=== PATIENT | female | born 1930 | race Caucasian/White ===

== ENCOUNTER 2018-05-10 14:14 | Inpatient (IN) ==
[2018-05-10 14:45] LABS: Basophils % 0.9 % (0.1-2.0); Eosinophils # 0.1 K/mm3 (0.0-0.4); Eosinophils % 3.4 % (0.1-12.0); Lymphocytes # 1.5 K/mm3 (0.7-4.5); Lymphocytes % 36.6 % (10-50); Mean Corpuscular Hemoglobin 18.8 pg (27.0-31.2); Mean Corpuscular Volume 69.7 fl (81-99); Mean Platelet Volume 8.4 fl (7.4-10.4); Monocytes # 0.3 K/mm3 (0.1-1.0); Monocytes % 7.4 % (1.7-9.3); Neutrophils # 2.2 K/mm3 (1.8-7.8); Neutrophils % 51.7 % (37.0-80.0); Platelet Count 471 K/mm3 (142-424); Red Blood Count 2.38 M/mm3 (4.20-5.40); Red Cell Distribution Width 15.6 % (11.5-17.5); White Blood Count 4.2 K/mm3 (4.8-10.8)
--- NOTE | 2018-05-10 14:46 | Emergency Department Note ---
ED Disposition Clinical Impression: Blood loss anemia, Occult blood positive stool Disposition: Admitted As Inpatient Condition on Discharge: Fair Referrals: Provider,Referral, [Primary Care Provider] - - Critical Care Critical Care Time: Yes Attestation: On 05/10/18, the high probability of a clinically significant, sudden or life threatening deterioration of the following system(s) required my full and direct attention, intervention and personal management. The time I documented below is in addition to time spent performing reported procedures but includes the following listed in this critical care notation. Vital system(s) involved:: Circulatory Failure My critical care processes included: Assessment & monitoring of V/S, Initial and Re-exams, Data Review/Interpretation, Coordinating Care, Medication Orders and management, Documentation Medical Decision Making - [place] Inquiry Pt receiving controlled substance: No Vital Signs: 05/10/18 14:15 05/10/18 14:50 05/10/18 15:15 Temperature 98.0 F Temperature Source Oral Pulse Rate [Right Radial] 72 72 Respiratory Rate 20 20 Blood Pressure [Right Arm] 154/65 H 153/80 H 140/54 L Blood Pressure Mean [Right Arm] 94 104 82 Blood Pressure Source [Right Arm] Automatic Cuff Automatic Cuff Automatic Cuff Blood Pressure Position [Right Arm] Sitting Sitting Sitting 02 Sat by Pulse Oximetry 99 92 L Oxygen Delivery Method Nasal Cannula Nasal Cannula Oxygen Flow Rate (LPM) 2 2 - Lab Data Lab Results 05/10/18 14:36: WBC 4.2 L, RBC 2.38 L, Hgb 4.5 L*, Hct 16.6 L*, MCV 69.7 L, MCH 18.8 L, MCHC 27.0 L, RDW 15.6, Plt Count 471 H, MPV 8.4, Neut % (Auto) 51.7, Lymph % (Auto) 36.6, [place] % (Auto) 7.4, Eos % (Auto) 3.4, Baso % (Auto) 0.9, Neut # (Auto) 2.2, Lymph # (Auto) 1.5, [place] # (Auto) 0.3, Eos # (Auto) 0.1, Baso # (Auto) 0.0 05/10/18 14:36: Sodium 135 L, Potassium 4.1, Chloride 101, Carbon Dioxide 22, Anion Gap 16.1 H, BUN 43 H, Creatinine 1.75 H, Estimated Creat Clear 17, Estimated GFR 27 L, Est GFR ( Amer) 33 L, Glucose 181 H, Calcium 8.0 L, Total Bilirubin 0.3, AST 11 L, ALT 14, Alkaline Phosphatase 113, Total Protein 7.3, Albumin 2.9 L, Globulin 4.4 H, Albumin/Globulin Ratio 0.7 L 05/10/18 14:36: Troponin I < 0.02 05/10/18 14:55: Stool Occult Blood Positive A Result diagrams: 05/10/18 14:36 05/10/18 14:36 Orders (Tests/Meds): ED MEDICATIONS Generic Name Dose Route Start Last Admin Trade Name Freq PRN Reason Stop Dose Admin Sodium Chloride 250 mls @ 25 mls/hr 05/10/18 15:15 Sod Chlor 0.9% 250ml Bag IV 05/11/18 15:14 .Q10H LIZETH Sodium Chloride 10 ml 05/10/18 14:24 Saline Flush 10ml Syringe IV 06/09/18 14:23 NEEDED PRN Maintain IV Site ORDERS Category Date Time Status PRBC [Red Blood Cells] Stat BBK 05/10/18 15:03 Ordered Type and Screen Stat BBK 05/10/18 15:03 Ordered Occult Blood,Stool Stat Lab 05/10/18 14:55 Ordered - ECG Data Tracing #1 EKG interpreted by Gilmar Loving MD: Rhythm: Atrial fibrillation Rate: 84 [place]: Left Ectopy: none Conduction: normal ST Segment Changes: none T Wave Changes: none Q Waves: none No evidence of acute ischemia or injury Baseline artifact and wander present, but I consider the EKG adequate for accurate interpretation. General Adult HPI - General Chief complaint: Weakness Stated complaint: critical labs Time Seen by Provider: 05/10/18 14:46 Mode of Arrival: EMS Limitations: No Limitations Description of Symptoms (Recalled from ER Triage Doc. by RN): Pt sent over to ER for evaluation r/t critical H&H that was drawn at the group home. Per PCP pt is chronically anemic but not as low as lab results from today. - History of Present Illness HPI narrative: Sent from [facility] for low H&H. Blood work reportedly done today and hemoglobin was 4. History of chronic anemia, but is now worse. Patient says she does not feel very well, but has no specific complaint. Denies pain. Denies abdominal pain or chest pain. Denies shortness of breath. Denies vomi ting or hematemesis. Denies melena or hematochezia. - Related Data Home Medications Medication Instructions Recorded Confirmed acetaminophen 500 mg capsule 500 mg PO Q4H PRN 06/29/17 04/02/18 bisacodyl 10 mg rectal suppository 10 mg DC DAILY PRN each 06/29/17 04/02/18 lactulose 10 gram/15 mL oral 20 g PO DAILY PRN ml 06/29/17 04/02/18 solution rivaroxaban 15 mg tablet 15 mg PO DAILY tab 06/29/17 04/02/18 diltiazem CD 240 mg 240 mg PO BID cap 07/03/17 04/02/18 capsule,extended release 24 hr triamterene 75 1 tab PO QAM 07/31/17 04/02/18 mg-hydrochlorothiazide 50 mg tablet Doxazosin Mesylate [Cardura 4mg 4 mg PO QHS 12/12/17 04/02/18 Tab] Sennosides/Docusate Sodium 1 each PO BID 12/12/17 04/02/18 [Senna-S Laxative Tablet] polyethylene glycol 3350 17 8 g PO DAILY g 04/02/18 04/02/18 gram/dose oral powder Allergies Allergy/AdvReac Type Severity Reaction Status Date / Time No Known Allergies Allergy Verified 04/02/18 10:52 [facility] History - Hepatitis A Screen Drug use history?: No High risk sexual behaviors?: No History of sexually transmitted infection?: No Currently employed?: No Childcare worker?: No Do you have indoor plumbing?: Yes Do you have electricity?: Yes Attestation statement:: This patient has been screened for Hepatitis A risk factors. I have reviewed the patient's past medical history: Yes Medical History: Reports:: Atrial Fibrillation Other Surgeries: Yes: Other - Social History Smoking Status: Never smoker Alcohol Intake: never Alcohol Intake Frequency:: other Substance Use Type: denies use Family Hx:: Unable to obtain ROS Obtained: Yes All systems reviewed & no additional complaints - Constitutional Constitutional: Denies fever(s) - Cardiovascular Cardiovascular: Denies chest pain - Respiratory Respiratory: No dyspnea - Gastrointestinal Gastrointestingal: Denies: abdominal pain, change in stool character, diarrhea, nausea, vomiting Physical Exam - General General appearance: alert, in no apparent distress - Head Head exam: atraumatic, normocephalic - ENT ENT exam: Present: mucous membranes moist - Neck Neck exam: Present: normal inspection, trachea midline - Chest Chest inspection: Present: normal inspection, symmetric chest wall rise - Respiratory Respiratory exam: Present: normal lung sounds bilaterally. Absent: respiratory distress - Cardiovascular Cardiovascular exam: Present: regular rate, normal rhythm, normal heart sounds - Abdominal Exam Abdominal exam: Present: soft. Absent: distention, tenderness - Rectal Exam Rectal exam: Present: normal inspection, normal rectal tone. Absent: black stool, bloody stool, mass - Extremities Exam Extremities exam: Present: normal inspection - Neurological Exam Neurological exam: Present: alert - Psychiatric Psychiatric exam: Present: anxious - Skin Skin exam: Present: warm, dry
[2018-05-10 14:54] LABS: Hemoglobin 4.5 g/dL (12.2-16.2)
[2018-05-10 14:55] LABS: Hematocrit 16.6 % (37.0-47.0)
[2018-05-10 14:57] LABS: Albumin Level 2.9 gm/dL (3.4-5.0); Albumin/Globulin Ratio 0.7 (1.1-1.8); Anion Gap 16.1 mEq/L (5-15); Bilirubin,Total 0.3 mg/dL (0.2-1.0); Globulin 4.4 gm/dl (1.3-3.2); Potassium 4.1 mmoL/L (3.5-5.1); Total Protein,Serum 7.3 gm/dL (6.4-8.2)
[2018-05-11 00:28] LABS: Hematocrit 25.5 % (37.0-47.0); Hemoglobin 8.2 g/dL (12.2-16.2)
[2018-05-11 06:19] LABS: Basophils % 0.5 % (0.1-2.0); Eosinophils # 0.2 K/mm3 (0.0-0.4); Eosinophils % 3.5 % (0.1-12.0); Lymphocytes # 1.8 K/mm3 (0.7-4.5); Lymphocytes % 28.7 % (10-50); Mean Corpuscular HGB Conc 32.5 g/dL (31.8-35.4); Mean Corpuscular Hemoglobin 24.9 pg (27.0-31.2); Mean Corpuscular Volume 76.6 fl (81-99); Mean Platelet Volume 7.2 fl (7.4-10.4); Monocytes # 0.4 K/mm3 (0.1-1.0); Monocytes % 7.2 % (1.7-9.3); Neutrophils # 3.7 K/mm3 (1.8-7.8); Neutrophils % 60.2 % (37.0-80.0); Platelet Count 402 K/mm3 (142-424); Red Blood Count 3.06 M/mm3 (4.20-5.40); Red Cell Distribution Width 20.5 % (11.5-17.5); White Blood Count 6.2 K/mm3 (4.8-10.8)
[2018-05-11 07:25] LABS: Hematocrit 23.4 % (37.0-47.0); Hemoglobin 7.6 g/dL (12.2-16.2)
--- NOTE | 2018-05-11 08:46 | History & Physical Report ---
*Admission Date: 05/10/18 *Chief complaint: anemia *History of present illness: this wf from [facility] was found to have acute blood loss anemia - she was seen in the ed nt from [facility] for low H&H. Blood work reportedly done today and hemoglobin was 4. History of chronic anemia, but is now worse. Patient says she does not feel very well, but has no specific complaint. Denies pain. Denies abdominal pain or chest pain. Denies shortness of breath. Denies vomiting or hematemesis. Denies melena or hematochezia. pt with pos hemocult and low h/h and was admitted for eval and trnsfusion- pt is poor historian [facility] History I have reviewed the patient's past medical history: Yes Medical History: Reports:: Atrial Fibrillation Denies:: Diabetes Mellitus Type 1, Diabetes Mellitus Type 2 Have you ever received a pneumonia vaccine?: Yes Have you received a flu vaccine this season?: Yes Other Surgeries: Yes: Cholecystectomy, Hysterectomy-Total, Other - *Social History Smoking Status: Never smoker Alcohol Intake: never Alcohol Intake Frequency:: other Substance Use Type: denies use Occupational Status: other Housing: retirement Household Members: caregiver Travel in the last 8 weeks: None - Psychiatric History Expresses thoughts of harming self/others: None Suicide Plan Description: No Plan *Family Hx:: Unable to obtain Review of Systems - Review of Systems Review of systems:: pertinent systems reviewed and negative unless documented below - Constitutional Denies fever(s) - Eyes Denies change in vision - ENT Denies sore throat - *Cardiovascular Denies chest pain at rest - *Respiratory Denies cough - *Gastrointestinal Denies abdominal pain, Denies bright, red blood in stools, Denies black, tarry stools - *Genitourinary Denies blood in urine - *Musculoskeletal Denies joint pain - Integumentary/Breasts Denies rash - *Neurologic Denies headache(s), Denies seizure-like activity - Psychiatric Reports anxiety Meds Home Medications Medication Instructions Recorded Confirmed Type acetaminophen 500 mg capsule 500 mg PO Q4HP PRN 06/29/17 05/11/18 History bisacodyl 10 mg rectal suppository 10 mg RC DAILYP PRN each 06/29/17 05/11/18 History lactulose 10 gram/15 mL oral 20 gm PO DAILY PRN ml 06/29/17 05/11/18 History solution rivaroxaban 15 mg tablet 15 mg PO DAILY tab 06/29/17 05/10/18 History diltiazem CD 240 mg 240 mg PO BID cap 07/03/17 05/10/18 History capsule,extended release 24 hr triamterene 75 1 tab PO DAILY 07/31/17 05/11/18 History mg-hydrochlorothiazide 50 mg tablet Doxazosin Mesylate [Cardura 4mg 4 mg PO HS 12/12/17 05/11/18 History Tab] Sennosides/Docusate Sodium 1 each PO BID 12/12/17 05/10/18 History [Senna-S Laxative Tablet] polyethylene glycol 3350 17 17 gm PO DAILY g 04/02/18 05/11/18 History gram/dose oral powder Allergies Allergy/AdvReac Type Severity Reaction Status Date / Time No Known Allergies Allergy Verified 04/02/18 10:52 Exam Vital signs and Labs for Last 24 Hours: Temp Pulse Resp BP Pulse Ox 98.3 F 69 18 142/63 H 98 05/11/18 08:00 05/11/18 08:00 05/11/18 08:00 05/11/18 08:00 05/11/18 08:00 Laboratory Results - last 24 hr 05/10/18 14:36: WBC 4.2 L, RBC 2.38 L, Hgb 4.5 L*, Hct 16.6 L*, MCV 69.7 L, MCH 18.8 L, MCHC 27.0 L, RDW 15.6, Plt Count 471 H, MPV 8.4, Neut % (Auto) 51.7, Lymph % (Auto) 36.6, [place] % (Auto) 7.4, Eos % (Auto) 3.4, Baso % (Auto) 0.9, Neut # (Auto) 2.2, Lymph # (Auto) 1.5, [place] # (Auto) 0.3, Eos # (Auto) 0.1, Baso # (Auto) 0.0 05/10/18 14:36: Sodium 135 L, Potassium 4.1, Chloride 101, Carbon Dioxide 22, Anion Gap 16.1 H, BUN 43 H, Creatinine 1.75 H, Estimated Creat Clear 17, Estimated GFR 27 L, Est GFR ( Amer) 33 L, Glucose 181 H, Calcium 8.0 L, Total Bilirubin 0.3, AST 11 L, ALT 14, Alkaline Phosphatase 113, Total Protein 7.3, Albumin 2.9 L, Globulin 4.4 H, Albumin/Globulin Ratio 0.7 L 05/10/18 14:36: Troponin I < 0.02 05/10/18 14:55: Stool Occult Blood Positive A 05/10/18 15:40: Blood Type O Positive, Antibody Screen Negative, Crossmatch (AHG) See Detail 05/11/18 00:20: Hgb 8.2 L D, Hct 25.5 L 05/11/18 06:00: WBC 6.2 D, RBC 3.06 L D, Hgb 7.6 L*, Hct 23.4 L*, MCV 76.6 L, MCH 24.9 L D, MCHC 32.5, RDW 20.5 H D, Plt Count 402, MPV 7.2 L, Neut % (Auto) 60.2, Lymph % (Auto) 28.7, [place] % (Auto) 7.2, Eos % (Auto) 3.5, Baso % (Auto) 0.5, Neut # (Auto) 3.7, Lymph # (Auto) 1.8, [place] # (Auto) 0.4, Eos # (Auto) 0.2, Baso # (Auto) 0.0 I & O for Last 24 hours: Intake & Output 05/08/18 05/09/18 05/10/18 05/11/18 11:59 11:59 11:59 11:59 Intake Total 0 / 0 Balance 0 / 0 Weight 104 lb 7 oz - Constitutional no acute distress, thin - *Routine HEENT Exam Head: Present: normocephalic Eye: Present: EOMI, PERRL ENT: Present: mucous membranes dry - *Routine Neck Exam Present: supple - *Routine Respiratory Exam Absent: decreased breath sounds - *Routine Cardiovascular Exam Present: RRR, murmur - *Routine Abdominal Exam Present: soft - *Routine Extremities Exam Absent: calf tenderness - *Routine Skin Exam Present: intact - *Routine Neurological Exam Present: alert, oriented X3, CN II-XII intact - Routine Psychiatric Exam Present: unable to assess Assessment and Plan (1) Renal insufficiency Current visit: Yes Status: Acute Category: Medical Code(s): N28.9 - Disorder of kidney and ureter, unspecified (2) Blood loss anemia Current visit: Yes Status: Acute Category: Medical Code(s): D50.0 - Iron deficiency anemia secondary to blood loss (chronic) (3) Occult blood positive stool Current visit: Yes Status: Acute Category: Medical Code(s): R19.5 - Other fecal abnormalities (4) Dementia Current visit: No Status: Chronic Qualifiers: Dementia type: Alzheimer's disease Alzheimer's disease onset: unspecified onset Dementia behavioral disturbance: without behavioral disturbance Qualified Code(s): G30.9 - Alzheimer's disease, unspecified; F02.80 - Dementia in other diseases classified elsewhere without behavioral disturbance Category: Medical Code(s): F03.90 - Unspecified dementia without behavioral disturbance
--- NOTE | 2018-05-11 10:20 | Pharmacy Consult Notes ---
[facility] Pharmacy VTE Monitoring - Patient Demographics Admission date: 05/10/18 Report Date: 05/11/18 Time: 10:20 Allergies/Adverse Reactions: Patient Allergies No Known Allergies Allergy (Verified 04/02/18 10:52) Height: 1.6 m Weight: 47.372 kg Patient Problems: Current Active Problems Blood loss anemia (Acute) Occult blood positive stool (Acute) - VTE Risk Labs: VTE Related Lab Results Hgb 7.6 g/dL (12.2-16.2) L* 05/11/18 06:00 Hct 23.4 % (37.0-47.0) L* 05/11/18 06:00 Plt Count 402 K/mm3 (142-424) 05/11/18 06:00 BUN 43 mg/dL (7-18) H 05/10/18 14:36 Creatinine 1.75 mg/dL (0.55-1.02) H 05/10/18 14:36 Estimated Creat Clear 17 mL/min (50-200) 05/10/18 14:36 Was VTE Risk Assessment Performed: Yes VTE Risk Level: Very Low Risk - Prophylaxis VTE Prophylaxis Ordered?: Yes Types of VTE Prophylaxis: TEDS Knee High Location of Applied Device: Bilateral Lower Extremeties - VTE Diagnosis Confirmed Treatment or plan recommended: Continue Current Treatment
[2018-05-11 22:44] LABS: Hemoglobin 10.3 g/dL (12.2-16.2)
[2018-05-12 07:58] LABS: Basophils % 0.6 % (0.1-2.0); Eosinophils # 0.2 K/mm3 (0.0-0.4); Eosinophils % 3.2 % (0.1-12.0); Mean Corpuscular HGB Conc 31.3 g/dL (31.8-35.4); Mean Corpuscular Hemoglobin 25.4 pg (27.0-31.2); Mean Corpuscular Volume 81.2 fl (81-99); Mean Platelet Volume 7.1 fl (7.4-10.4); Monocytes # 0.4 K/mm3 (0.1-1.0); Monocytes % 6.7 % (1.7-9.3); Neutrophils # 3.5 K/mm3 (1.8-7.8); Neutrophils % 57.4 % (37.0-80.0); Platelet Count 369 K/mm3 (142-424); Red Blood Count 3.95 M/mm3 (4.20-5.40); Red Cell Distribution Width 19.7 % (11.5-17.5); White Blood Count 6.1 K/mm3 (4.8-10.8)
--- NOTE | 2018-05-12 08:00 | Progress Note ---
Internal Medicine - PN: Subj *Date: 05/12/18 *Time: 08:00 Interval history: doing better - labs pending Exam Vital signs and Labs for Last 24 Hours: Temp Pulse Resp BP Pulse Ox 98.0 F 69 17 111/69 94 L 05/12/18 04:00 05/12/18 04:00 05/12/18 04:00 05/12/18 04:00 05/12/18 04:00 Laboratory Results - last 24 hr 05/10/18 15:40: Blood Type O Positive, Antibody Screen Negative, Crossmatch (AHG) See Detail 05/11/18 22:25: Hgb 10.3 L D, Hct 32.0 L 05/12/18 07:02: WBC 6.1, RBC 3.95 L D, Hgb 10.0 L, Hct 32.0 L, MCV 81.2, MCH 25.4 L, MCHC 31.3 L, RDW 19.7 H, Plt Count 369, MPV 7.1 L, Neut % (Auto) 57.4, Lymph % (Auto) 32.0, [place] % (Auto) 6.7, Eos % (Auto) 3.2, Baso % (Auto) 0.6, Neut # (Auto) 3.5, Lymph # (Auto) 2.0, [place] # (Auto) 0.4, Eos # (Auto) 0.2, Baso # (Auto) 0.0 I & O for Last 24 hours: Intake & Output 05/09/18 05/10/18 05/11/18 05/12/18 11:59 11:59 11:59 11:59 Intake Total 0 / 0 1320 / 1320 Balance 0 / 0 1320 / 1320 Weight 104 lb 7 oz - Constitutional no acute distress - *Routine HEENT Exam Head: Present: normocephalic Eye: Present: EOMI, PERRL ENT: Present: mucous membranes dry - *Routine Neck Exam Absent: JVD - *Routine Respiratory Exam Absent: respiratory distress - *Routine Cardiovascular Exam Present: RRR, murmur - *Routine Abdominal Exam Present: soft - *Routine Extremities Exam Absent: edema - *Routine Skin Exam Present: intact - *Routine Neurological Exam Present: alert, CN II-XII intact - Routine Psychiatric Exam Present: normal affect Assessment and Plan (1) Renal insufficiency Current visit: Yes Status: Acute Category: Medical Code(s): N28.9 - Disorder of kidney and ureter, unspecified (2) Blood loss anemia Current visit: Yes Status: Acute Category: Medical Code(s): D50.0 - Iron d eficiency anemia secondary to blood loss (chronic) (3) Occult blood positive stool Current visit: Yes Status: Acute Category: Medical Code(s): R19.5 - Other fecal abnormalities (4) Dementia Current visit: No Status: Chronic Qualifiers: Dementia type: Alzheimer's disease Alzheimer's disease onset: unspecified onset Dementia behavioral disturbance: without behavioral disturbance Qualified Code(s): G30.9 - Alzheimer's disease, unspecified; F02.80 - Dementia in other diseases classified elsewhere without behavioral disturbance Category: Medical Code(s): F03.90 - Unspecified dementia without behavioral disturbance
[2018-05-12 08:04] LABS: Anion Gap 13.9 mEq/L (5-15); Calcium 7.9 mg/dL (8.5-10.1); Potassium 3.9 mmoL/L (3.5-5.1)
[2018-05-13 06:13] LABS: Basophils % 0.7 % (0.1-2.0); Eosinophils # 0.1 K/mm3 (0.0-0.4); Eosinophils % 2.3 % (0.1-12.0); Hematocrit 32.7 % (37.0-47.0); Hemoglobin 10.2 g/dL (12.2-16.2); Lymphocytes # 1.4 K/mm3 (0.7-4.5); Lymphocytes % 26.7 % (10-50); Mean Corpuscular HGB Conc 31.2 g/dL (31.8-35.4); Mean Corpuscular Hemoglobin 25.6 pg (27.0-31.2); Mean Corpuscular Volume 82.1 fl (81-99); Mean Platelet Volume 7.3 fl (7.4-10.4); Monocytes # 0.4 K/mm3 (0.1-1.0); Neutrophils # 3.2 K/mm3 (1.8-7.8); Neutrophils % 62.3 % (37.0-80.0); Platelet Count 340 K/mm3 (142-424); Red Blood Count 3.99 M/mm3 (4.20-5.40); Red Cell Distribution Width 20.3 % (11.5-17.5); White Blood Count 5.2 K/mm3 (4.8-10.8)
[2018-05-13 06:23] LABS: Calcium 8.1 mg/dL (8.5-10.1)
--- NOTE | 2018-05-13 09:04 | Discharge Summary ---
General - General Admission date:: 05/10/18 Discharge date: 05/13/18 HPI HPI: [facility]f from [facility] was found to have acute blood loss anemia - she was seen in the ed nt from [facility] for low H&H. Blood work reportedly done today and hemoglobin was 4. History of chronic anemia, but is now worse. Patient says she does not feel very well, but has no specific complaint. Denies pain. Denies abdominal pain or chest pain. Denies shortness of breath. Denies vomiting or hematemesis. Denies melena or hematochezia. pt with pos hemocult and low h/h and was admitted for eval and trnsfusion- pt is poor historian Hospital Course Hospital Course: pt has improved after blood transfusion with stable h/h and improved clinical exam and renal function - Objective Vital signs: Temp Pulse Resp BP Pulse Ox 98.8 F 64 18 120/43 L 96 05/13/18 08:00 05/13/18 08:00 05/13/18 08:00 05/13/18 08:00 05/13/18 08:00 no acute distress - *Routine HEENT Exam Head: Present: normocephalic Eye: Present: EOMI, PERRL ENT: Present: mucous membranes dry - *Routine Neck Exam Present: supple - *Routine Respiratory Exam Present: rhonchi. Absent: respiratory distress - *Routine Cardiovascular Exam Present: RRR, murmur, S4 - *Routine Abdominal Exam Present: soft - *Routine Extremities Exam Absent: edema - *Routine Skin Exam Present: intact - *Routine Neurological Exam Present: alert, CN II-XII intact - Routine Psychiatric Exam Present: normal affect Results Labs on day of discharge: Labs from last 24 hours 05/13/18 05/13/18 05/10/18 06:02 06:02 15:40 WBC 5.2 RBC 3.99 L Hgb 10.2 L Hct 32.7 L MCV 82.1 MCH 25.6 L MCHC 31.2 L RDW 20.3 H Plt Count 340 MPV 7.3 L Neut % (Auto) 62.3 Lymph % (Auto) 26.7 [place] % (Auto) 8.0 Eos % (Auto) 2.3 Baso % (Auto) 0.7 Neut # (Auto) 3.2 Lymph # (Auto) 1.4 [place] # (Auto) 0.4 Eos # (Auto) 0.1 Baso # (Auto) 0.0 Sodium 140 Potassium 4.0 Chloride 108 H Carbon Dioxide 21 Anion Gap 15.0 BUN 33 H Creatinine 1.53 H Estimated Creat Clear 19 Estimated GFR 32 L Est GFR ( Amer) 39 L Glucose 96 Calcium 8.1 L Crossmatch (AHG) See Detail DS: Diagnosis - Discharge Diagnosis (1) Renal insufficiency Status: Acute (2) Blood loss anemia Status: Acute (3) Occult blood positive stool Status: Acute (4) Dementia Status: Chronic Discharge Plan - Patient Discharge Instructions ACTIVITY: Continue current activity DIET: continue same diet Patient Instructions: Anemia, DI for Blood Transfusion - Follow up Plan Disposition: [facility] Home Medications: Home Medications Medication Instructions Recorded Confirmed Type acetaminophen 500 mg capsule 500 mg PO Q4HP PRN 06/29/17 05/11/18 History bisacodyl 10 mg rectal suppository 10 mg RC DAILYP PRN each 06/29/17 05/11/18 History lactulose 10 gram/15 mL oral 20 gm PO DAILY PRN ml 06/29/17 05/11/18 History solution rivaroxaban 15 mg tablet 15 mg PO DAILY tab 06/29/17 05/10/18 History diltiazem CD 240 mg 240 mg PO BID cap 07/03/17 05/10/18 History capsule,extended release 24 hr triamterene 75 1 tab PO DAILY 07/31/17 05/11/18 History mg-hydrochlorothiazide 50 mg tablet Doxazosin Mesylate [Cardura 4mg 4 mg PO HS 12/12/17 05/11/18 History Tab] Sennosides/Docusate Sodium 1 each PO BID 12/12/17 05/10/18 History [Senna-S Laxative Tablet] polyethylene glycol 3350 17 17 gm PO DAILY g 04/02/18 05/11/18 History gram/dose oral powder Prescriptions/Medication Reconciliation: Continue rivaroxaban 15 mg tablet 15 mg PO DAILY tab bisacodyl 10 mg rectal suppository 10 mg RC DAILYP PRN each PRN Reason: Constipation lactulose 10 gram/15 mL oral solution 20 gm PO DAILY PRN ml PRN Reason: Constipation polyethylene glycol 3350 17 gram/dose oral powder 17 gm PO DAILY g diltiazem CD 240 mg capsule,extended release 24 hr 240 mg PO BID cap Doxazosin Mesylate [Cardura 4mg Tab] 4 mg PO HS Sennosides/Docusate Sodium [Senna-S Laxative Tablet] 1 each PO BID Discontinued acetaminophen 500 mg capsule 500 mg PO Q4HP PRN PRN Reason: pain triamterene 75 mg-hydrochlorothiazide 50 mg tablet 1 tab PO DAILY
== END 2018-05-13 10:55 | DRG 812 ==
LOC: ER 14:14 → 2ND 16:08
PROVIDERS: ADMIT Emergency Medicine; ATTEND Emergency Medicine
CPT/HCPCS: 36415; 36430; 80048; 80053; 82272; 84484; 85014; 85018; 85025; 86850; 93005; 94761; 99284; G0328; P9016